=== PATIENT | female | born 1950 | race Caucasian/White ===

== ENCOUNTER 2018-09-15 21:21 | Emergency (ER) | payer MEDICARE, OTHER ==
[2018-09-15 22:08] VITALS: BP 160/89; PULSE 115
[2018-09-15] MEDS ORDERED: Acetaminophen 500 MG Tab PO ONE (23:19)
--- NOTE | 2018-09-16 00:20 | CRLCR ---
INDICATION: pain, fever TECHNIQUE: Chest 2 views. COMPARISON: 12/03/14 FINDINGS: Cardiovascular and mediastinum: Heart size and vasculature are normal in caliber and appearance. Mediastinum is within normal limits. Lungs and pleural spaces: Lungs are clear. No sign of infiltrate or mass. No sign of pleural effusion. No pneumothorax. Bones and soft tissues: No significant findings. IMPRESSION: Unremarkable chest. Dictated by: Eber Heart MD @ 09/16/2018 00:19:39 (Electronically Signed)
--- NOTE | 2018-09-16 01:11 | EDM.PDOC ---
ED HPI GENERAL MEDICAL PROBLEM - General Chief Complaint: Fever Stated Complaint: ILLNESS Time Seen by Provider: 09/15/18 23:08 Source of Information: Reports: Patient History Limitations: Reports: No Limitations - History of Present Illness INITIAL COMMENTS - FREE TEXT/NARRATIVE: This lady began getting sick on Monday 3 days ago. It began with a headache fever and body aches which have continued. She's had a little bit of a cough. Has been nausea and she is spit up just a little bit. She denies any sore throat she has just a very slight discomfort to the upper left sternal border with sort of goes through to her back there is no abdominal pain and she denies urinary symptoms. There is no rash. She was bitten by a tick several days ago but said the tick was on her arm just for a couple of hours and was not embedded so it was easily removed. - Related Data Allergies Allergy/AdvReac Type Severity Reaction Status Date / Time hydrocodone Allergy Itching Verified 12/04/14 09:07 Home Meds: Home Meds Ascorbic Acid 1,000 mg PO DAILY 12/03/14 [History] Aspirin [Ecotrin] 81 mg PO DAILY 12/03/14 [History] Calcium Carbonate/Vitamin D3 [Calcium 600 + Vit D 200] 1 tab PO DAILY 12/03/14 [ History] Cholecalciferol (Vitamin D3) [Vitamin D] 5,000 unit PO DAILY 12/03/14 [History] Cinnamon Bark [Cinnamon] 750 mg PO DAILY 12/03/14 [History] Magnesium 400 mg PO DAILY 12/03/14 [History] Melatonin 5 mg PO BEDTIME 12/03/14 [History] [place]-3 Fatty Acids [[place]-3] 2,000 mg PO BID 12/03/14 [History] Thyroid,Pork [Nature-Throid] 2 tab PO DAILY 12/03/14 [History] Zolpidem Tartrate [Ambien] 5 mg PO BEDTIME PRN 12/03/14 [History] Past Medical History HEENT History: Reports: None Cardiovascular History: Reports: Hypertension Respiratory History: Reports: Bronchitis, Recurrent Gastrointestinal History: Reports: None Genitourinary History: Reports: None Other [employer]ING [employer] History: [employer]. Neurological History: Reports: Other (See Below) Other Neuro History: Trade's Palsy Psychiatric History: Reports: Depression Endocrine/Metabolic History: Reports: None Hematologic History: Reports: None Immunologic History: Reports: None Oncologic (Cancer) History: Reports: None Dermatologic History: Reports: None - Past Surgical History Other Musculoskeletal Surgeries/Procedures:: Plate and 8 screws l ankle. Social & Family History - Tobacco Use Smoking Status *Q: Never Smoker ED ROS GENERAL - Review of Systems Review Of Systems: See Below Constitutional: Reports: Fever, Chills HEENT: Reports: No Symptoms Respiratory: Reports: No Symptoms Cardiovascular: Reports: Other (See history of present illness) Endocrine: Reports: No Symptoms GI/Abdominal: Reports: No Symptoms : Reports: No Symptoms Musculoskeletal: Reports: Other (Body aches) Skin: Reports: No Symptoms Neurological: Reports: No Symptoms Psychiatric: Reports: No Symptoms Hematologic/Lymphatic: Reports: No Symptoms Immunologic: Reports: No Symptoms ED EXAM, SEPSIS - Physical Exam Exam: See Below Exam Limited By: No Limitations General Appearance: Alert, WD/WN, Mild Distress Eye Exam: Bilateral Eye: EOMI, PERRL Ears: Normal TMs Nose: Normal Inspection Throat/Mouth: Normal Oropharynx Head: Atraumatic Neck: Normal Inspection Respiratory/Chest: No Respiratory Distress, Lungs Clear Cardiovascular: Normal Peripheral Pulses, Regular Rate, Rhythm, No Murmur GI/Abdominal Exam: Soft, Non-Tender Back: Normal Inspection Extremities: Normal Inspection Neurological: Alert, Oriented, CN II-XII Intact, No Motor/Sensory Deficits Psychiatric: Normal Affect Skin: Warm, Dry, Intact Lymphatic: Bilateral: No Adenopathy Course - Vital Signs Last Recorded V/S: Last Vital Signs Temp 38.3 C H 09/16/18 00:28 Pulse 115 H 09/15/18 22:05 Resp 14 09/15/18 22:05 BP 160/89 H 09/15/18 22:05 Pulse Ox - Orders/Labs/Meds Orders: Active Orders 24 hr Category Date Time Status EKG Documentation Completion [RC] ASDIRECTED Care 09/15/18 23:16 Active BABESIA MICROTI ANTIBODY PANEL Routine Lab 09/16/18 01:03 Ordered CULTURE BLOOD [BC] Urgent Lab 09/15/18 23:20 Received CULTURE BLOOD [BC] Urgent Lab 09/15/18 23:30 Received HUMAN GRANULOCYTIC JOSELINE-HGE Routine Lab 09/16/18 01:02 Ordered LYME, TOTAL AB TEST/REFLEX Routine Lab 09/16/18 01:03 Ordered Blood Culture x2 Reflex Set [OM.PC] Urgent Oth 09/15/18 23:16 Ordered EKG 12 Lead [EK] Urgent Ther 09/15/18 23:16 Ordered Labs: Laboratory Tests 09/15/18 09/15/18 09/15/18 Range/Units 23:04 23:15 23:20 WBC 5.2 (4.5-11.0) K/uL RBC 4.75 (3.30-5.50) M/uL Hgb 13.5 (12.0-15.0) g/dL Hct 40.7 (36.0-48.0) % MCV 86 (80-98) fL MCH 28 (27-31) pg MCHC 33 (32-36) % Plt Count 220 (150-400) K/uL Neut % (Auto) 76 H (36-66) % Lymph % (Auto) 13 L (24-44) % [place] % (Auto) 11 H (2-6) % Eos % (Auto) 0 L (2-4) % Baso % (Auto) 0 (0-1) % Sodium 138 L (140-148) mmol/L Potassium 4.0 (3.6-5.2) mmol/L Chloride 102 (100-108) mmol/L Carbon Dioxide 28 (21-32) mmol/L Anion Gap 12.0 (5.0-14.0) mmol/L BUN 10 (7-18) mg/dL Creatinine 0.8 (0.6-1.0) mg/dL Est Cr Clr Drug Dosing 62.13 mL/min Estimated GFR (MDRD) > 60 (>60) Glucose 125 H (74-106) mg/dL Calcium 8.7 (8.5-10.1) mg/dL Total Bilirubin 0.6 (0.2-1.0) mg/dL AST 14 L (15-37) U/L ALT 21 (12-78) U/L Alkaline Phosphatase 79 (46-116) U/L Total Protein 6.9 (6.4-8.2) g/dL Albumin 3.1 L (3.4-5.0) g/dL Globulin 3.8 H (2.3-3.5) g/dL Albumin/Globulin Ratio 0.8 L (1.2-2.2) Urine Color Yellow Urine Appearance Slightly cloudy Urine pH 7.0 (4.5-8.0) Ur Specific [place] 1.010 (1.008-1.030) Urine Protein Negative (NEGATIVE) mg/dL Urine Glucose (UA) Normal (NEGATIVE) mg/dL Urine Ketones 50 H (NEGATIVE) mg/dL Urine Occult Blood Moderate (NEGATIVE) Urine Nitrite Negative (NEGATIVE) Urine Bilirubin Negative (NEGATIVE) Urine Urobilinogen Normal (NORMAL) mg/dL Ur Leukocyte Esterase Large (NEGATIVE) Urine RBC 5-10 H (0-5) Urine WBC 5-10 H (0-5) Ur Epithelial Cells Few Amorphous Sediment Not seen Urine Bacteria Few Urine Mucus Few Meds: Medications Discontinued Medications Generic Name Dose Route Start Last Admin Trade Name Freq PRN Reason Stop Dose Admin Acetaminophen 1,000 mg 09/15/18 23:19 09/15/18 23:28 Tylenol Extra Strength PO 09/15/18 23:20 1,000 mg ONETIME ONE Administration - Radiology Interpretation Free Text/Narrative:: Chest x-ray was normal - Re-Assessments/Exams Free Text/Narrative Re-Assessment/Exam: 09/16/18 02:40 I did send off a tick panel. I discussed this with the patient I doubt that this is anything related to tics I think this is most likely a viral infection. We discussed whether or not to put her on doxycycline and she felt like she didn 't want to take doxycycline unless we had a better idea that this was actually a tickborne illness. I concur. She'll follow-up on Monday. Return to the ER for any rash or worsening. Departure - Departure Time of Disposition: 01:08 Disposition: Home, Self-Care 01 Condition: Fair Clinical Impression: Viral syndrome - Discharge Information Instructions: Viral Illness, Adult Referrals: Aurora Hutchison PA [Primary Care Provider] - Forms: ED Department Discharge Additional Instructions: Most likely you have a low grade virus which will get better without treatment. It is unlikely that you have any kind of a tick borne illness however a tick panel was sent and your can follow this up. Try to be seen on Monday unless you are just completely better by then. Return to the ER at any time if worse - My Orders Last 24 Hours: My Active Orders 09/15/18 23:16 EKG Documentation Completion [RC] ASDIRECTED Blood Culture x2 Reflex Set [OM.PC] Urgent EKG 12 Lead [EK] Urgent 09/15/18 23:20 CULTURE BLOOD [BC] Urgent 09/15/18 23:30 CULTURE BLOOD [BC] Urgent 09/16/18 01:02 HUMAN GRANULOCYTIC JOSELINE-HGE Routine 09/16/18 01:03 BABESIA MICROTI ANTIBODY PANEL Routine LYME, TOTAL AB TEST/REFLEX Routine - Assessment/Plan Last 24 Hours: My Active Orders 09/15/18 23:16 EKG Documentation Completion [RC] ASDIRECTED Blood Culture x2 Reflex Set [OM.PC] Urgent EKG 12 Lead [EK] Urgent 09/15/18 23:20 CULTURE BLOOD [BC] Urgent 09/15/18 23:30 CULTURE BLOOD [BC] Urgent 09/16/18 01:02 HUMAN GRANULOCYTIC JOSELINE-HGE Routine 09/16/18 01:03 BABESIA MICROTI ANTIBODY PANEL Routine LYME, TOTAL AB TEST/REFLEX Routine
[2018-09-19 10:11] LABS: LYME IGG/IGM AB <0.91 ISR (0.00-0.90)
[2018-09-19 14:10] LABS: HGE IGG TITER Negative (Neg:<1:64); HGE IGM TITER Negative (Neg:<1:20)
[2018-09-19 16:09] LABS: BABESIA MICROTI IGG <1:10 (Neg:<1:10); BABESIA MICROTI IGM <1:10 (Neg:<1:10)
== END 2018-09-16 01:30 | disposition home or self-care (01) ==
LOC: JP.ED 21:21
DX: B34.9 Viral infection, unspecified (principal); I10 Essential (primary) hypertension; Z79.82 Long term (current) use of aspirin; Z79.899 Other long term (current) drug therapy; Z88.8 Allergy status to other drugs, medicaments and biological substances
CPT/HCPCS: 36415; 71046; 80053; 81001; 85025; 86666; 86753; 87040; 93005; 99284; A9270; 86618; 93010; 99282